=== PATIENT | female | born 1975 ===

== ENCOUNTER 2018-11-15 13:01 | Emergency (ER) | payer OTHER, SELFPAY ==
--- NOTE | 2018-11-15 14:06 | ED PDOC ---
HPI: Female Pain Time Seen by Provider: 11/15/18 13:15 Chief Complaint (Nursing): Female Genitourinary Chief Complaint (Provider): Female Genitourinary History Per: Patient History/Exam Limitations: no limitations Onset/Duration Of Symptoms: Days (x5) Current Symptoms Are (Timing): Still Present Additional Complaint(s): 43 year old female presents to the emergency department with a complaint of difficulty and painful urination associated with lower abdominal and back pain. She reports seeing a small amount of blood in her urine and has been taking ibuprofen with minimal relief. Otherwise, she denies fever, chills, diarrhea, vaginal pain or discharge. PCP: Dr. Charlie Borges Past Medical History Reviewed: Historical Data, Nursing Documentation, Vital Signs Vital Signs: Last Vital Signs Temp 97.6 F 11/15/18 13:04 Pulse 71 11/15/18 13:04 Resp 20 11/15/18 13:04 BP 131/74 11/15/18 13:04 Pulse Ox 100 11/15/18 13:04 - Medical History PMH: No Chronic Diseases - Surgical History Surgical History: No Surg Hx - Family History Family History: States: Unknown Family Hx - Home Medications Home Medications: Ambulatory Orders Medication Instructions Recorded Phenazopyridine HCl [Pyridium] 100 mg PO TID #6 tab 11/15/18 Sulfamethoxazole/Trimethoprim 1 tab PO BID #14 tab 11/15/18 [Bactrim DS 800 mg-160 mg] - Allergies Allergies/Adverse Reactions: Allergies Allergy/AdvReac Type Severity Reaction Status Date / Time No Known Allergies Allergy Verified 11/15/18 13:04 Review of Systems ROS Statement: Except As Marked, All Systems Reviewed And Found Negative Constitutional: Negative for: Fever, Chills Gastrointestinal: Positive for: Abdominal Pain (lower). Negative for: Diarrhea Genitourinary Female: Positive for: Dysuria, Hematuria (small amount). Negative for: Vaginal Discharge, Vaginal Bleeding Musculoskeletal: Positive for: Back Pain (lower) Physical Exam - Reviewed Nursing Documentation Reviewed: Yes Vital Signs Reviewed: Yes - Physical Exam Appears: Positive for: Non-toxic, No Acute Distress Head Exam: Positive for: ATRAUMATIC, NORMAL INSPECTION, NORMOCEPHALIC Skin: Positive for: Normal Color Eye Exam: Positive for: Normal appearance ENT: Positive for: Normal ENT Inspection Neck: Positive for: Normal Cardiovascular/Chest: Positive for: Regular Rate, Rhythm Respiratory: Positive for: Normal Breath Sounds. Negative for: Respiratory Distress Gastrointestinal/Abdominal: Positive for: Soft, Tenderness (suprapubic) Back: Positive for: Normal Inspection. Negative for: L CVA Tenderness, R CVA Tenderness Extremity: Positive for: Normal ROM (upper/lower) Neurologic/Psych: Positive for: Alert, Oriented - ECG O2 Sat by Pulse Oximetry: 100 (RA) Pulse Ox Interpretation: Normal - Progress Re-evaluation Time: 15:02 Condition: Re-examined, Improved Medical Decision Making Medical Decision Making: Initial Impression: Dysuria; lower abdominal pain Differential diagnosis: UTI; complication Initial Plan: * Motrin 600mg PO * Pyridium 200mg PO * Urine dip and culture Time: 1345 --Urine reviewed: (+) blood and leukocytes. (-) . Scribe Attestation: Documented by Jovana Johnson, acting as a scribe for Valentine Choi MD. Provider Scribe Attestation: All medical record entries made by the Scribe were at my direction and personally dictated by me. I have reviewed the chart and agree that the record accurately reflects my personal performance of the history, physical exam, medical decision making, and the department course for this patient. I have also personally directed, reviewed, and agree with the discharge instructions and disposition. Disposition - Clinical Impression Clinical Impression: Urinary tract infection - Patient ED Disposition Is Patient to be Admitted: No Doctor Will See Patient In The: Office Counseled Patient/Family Regarding: Studies Performed, Diagnosis, Need For Followup - Disposition Referrals: [facility] [Outside] Disposition: Routine/Home Disposition Time: 15:02 Condition: GOOD Additional Instructions: TOMÁS RODRIGUEZ, thank you for letting us take care of you today. Your provider was Valentine Choi MD and you were treated for URINARY COMPLICATIONS. The emergency medical care you received today was directed at your acute symptoms. If you were prescribed any medication, please fill it and take as directed. It may take several days for your symptoms to resolve. Return to the Emergency Department if your symptoms worsen, do not improve, or if you have any other problems. Please contact your doctor or call one of the physicians/clinics you have been referred to that are listed on the Patient Visit Information form that is included in your discharge packet. Bring any paperwork you were given at discharge with you along with any medications you are taking to your follow up visit. Our treatment cannot replace ongoing medical care by a primary care provider outside of the emergency department. Thank you for allowing the [facility] team to be part of your care today. If you had an X-Ray or CT scan: A Radiologist will review the ED reading if any change in treatment is needed we will contact you. If you had a blood, urine, or wound culture: It will take several days for the results, if any change in treatment is needed we will contact you. If you had an STI test: It will take 48 hours for the results. Please call after 1 week if you have not heard back. Prescriptions: Sulfamethoxazole/Trimethoprim [Bactrim DS 800 mg-160 mg] 1 tab PO BID #14 tab Instructions: Urinary Tract Infections in Adults Forms: [employer] (Maori) Print Language: IRISH
[2018-11-15 15:29] VITALS: BP 123/68; PULSE 68; RESP 17; TEMP 98.1; O2SAT 99
== END 2018-11-15 15:28 | disposition home or self-care (01) ==
LOC: H.ER 13:01
DX: N39.0 Urinary tract infection, site not specified (principal)